=== PATIENT | female | born 1950 | race Caucasian/White ===

== ENCOUNTER 2017-03-29 03:21 | Emergency (ER) | payer OTHER ==
[2017-03-29 04:03] VITALS: BP 154/74; PULSE 63; RESP 18; TEMP 97.9; O2SAT 99
[2017-03-29] MEDS ORDERED: Phenylephrine 0.5% Nasal Spray NAS STA (04:57)
[2017-03-29] MEDS ORDERED: Phenylephrine 0.5% Nasal Spray NAS ONE (05:03)
--- NOTE | 2017-03-29 05:30 | ED PDOC ---
HPI: Headache Time Seen by Provider: 03/29/17 04:10 Chief Complaint (Nursing): Chest Pain Chief Complaint (Provider): Headache History Per: Patient History/Exam Limitations: no limitations Onset/Duration Of Symptoms: Days (x3) Current Symptoms Are (Timing): Still Present Associated Symptoms: denies: Nausea, Vomiting Additional Complaint(s): 66 year old female presents to ED with complaints of headache x3 days, has no past medical history, and is visiting her daughter in the [place] from [facility]. (+ ) cough, facial pain, and epistaxis. (-) nausea, vomiting, diarrhea, or fever. States that epistaxis x30 minutes [employer] prompted ED visit. Notes that upon ED arrival, epistaxis has resolved. PCP: In [facility] Past Medical History Reviewed: Historical Data, Nursing Documentation, Vital Signs Vital Signs: Last Vital Signs Temp 97.9 F 03/29/17 04:00 Pulse 63 03/29/17 04:00 Resp 18 03/29/17 04:00 BP 154/74 H 03/29/17 04:00 Pulse Ox 99 03/29/17 04:00 - Medical History PMH: No Chronic Diseases - Family History Family History: States: No Known Family Hx - Social History Current smoker - smoking cessation education provided: No Ex-Smoker (has not smoked in the last 12 months): No Alcohol: None Drugs: Denies - Home Medications Home Medications: Ambulatory Orders Medication Instructions Recorded Amoxicillin/Clavulanate [Augmentin 1 tab PO BID #14 tab 03/29/17 875 MG-125 MG] - Allergies Allergies/Adverse Reactions: Allergies Allergy/AdvReac Type Severity Reaction Status Date / Time No Known Allergies Allergy Verified 03/29/17 04:39 Review of Systems ROS Statement: Except As Marked, All Systems Reviewed And Found Negative Constitutional: Positive for: Other ((+) facial pain). Negative for: Fever ENT: Positive for: Other ((+) epistaxis -resolved ) Respiratory: Positive for: Cough Gastrointestinal: Negative for: Nausea, Vomiting, Diarrhea Neurological: Positive for: Headache Physical Exam - Reviewed Nursing Documentation Reviewed: Yes Vital Signs Reviewed: Yes - Physical Exam Appears: Positive for: Non-toxic, No Acute Distress Head Exam: Positive for: ATRAUMATIC, NORMOCEPHALIC. Negative for: NORMAL INSPECTION (frontal and maxillary sinus tenderness) Skin: Positive for: Normal Color Eye Exam: Positive for: Normal appearance ENT: Positive for: Normal ENT Inspection Neck: Positive for: Normal Cardiovascular/Chest: Positive for: Regular Rate, Rhythm. Negative for: Murmur Respiratory: Positive for: Rhonchi (bilateral). Negative for: Respiratory Distress Gastrointestinal/Abdominal: Positive for: Normal Exam, Soft. Negative for: Tenderness Back: Positive for: Normal Inspection Extremity: Positive for: Normal ROM. Negative for: Deformity Neurologic/Psych: Positive for: Alert, Oriented. Negative for: Motor/Sensory Deficits - ECG O2 Sat by Pulse Oximetry: 99 (RA) Pulse Ox Interpretation: Normal Medical Decision Making Medical Decision Makin Initial impression: epistaxis and sinus tenderness Initial plan: * CXR * Phenylephrine 0.5% 1 spry NILAM * Influenza A B 0530 CXR: NAD 0605 Patient stable for discharge home with Rx for augmentin and neosynephrine. Received referral to ENT specialist. Labs reviewed: no clinically significant abnormalities. Dx: sinusitis, epistaxis Scribe Attestation: Documented by Janine Mcintyre acting as a scribe for Les Crump MD. Scribe Attestation: All medical record entries made by the Scribe were at my direction and personally dictated by me. I have reviewed the chart and agree that the record accurately reflects my personal performance of the history, physical exam, medical decision making, and the department course for this patient. I have also personally directed, reviewed, and agree with the discharge instructions and disposition. Disposition - Clinical Impression Clinical Impression: Sinusitis, Epistaxis - Disposition Disposition: Routine/Home Disposition Time: 06:10 Condition: STABLE Prescriptions: Amoxicillin/Clavulanate [Augmentin 875 MG-125 MG] 1 tab PO BID #14 tab Instructions: Sinusitis (ED), Nosebleed (ED) Forms: [place] (Namibian)
--- NOTE | 2017-03-29 11:08 | RAD ---
HISTORY: cough COMPARISON: No prior. TECHNIQUE: Chest PA and lateral FINDINGS: LUNGS: No active pulmonary disease. PLEURA: No significant pleural effusion identified. No pneumothorax apparent. CARDIOVASCULAR: Atherosclerotic aortic calcifications. Cardiomediastinal silhouette within normal limits. OSSEOUS STRUCTURES: Degenerative changes. VISUALIZED UPPER ABDOMEN: Normal. OTHER FINDINGS: None. IMPRESSION: No active disease.
== END 2017-03-29 06:26 | disposition home or self-care (01) ==
LOC: H.ER 03:21
DX: J32.9 Chronic sinusitis, unspecified (principal); R04.0 Epistaxis; Z87.891 Personal history of nicotine dependence